=== PATIENT | male | born 1965 | race American Indian/Alaskan Native ===

== ENCOUNTER 2019-04-18 14:17 | Emergency (ER) | payer BC ==
--- NOTE | 2019-04-18 14:37 | Emergency Department Report ---
Blank Doc - Documentation Documentation: This is a 53-year-old male that presents with chest tightness and left jaw pain. This initial assessment/diagnostic orders/clinical plan/treatment(s) is/are subject to change based on patient's health status, clinical progression and re- assessment by fellow clinical providers in the ED. Further treatment and workup at subsequent clinical providers discretion. Patient/guardians urged not to elope from the ED as their condition may be serious if not clinically assessed a nd managed. Initial orders include: 1- Patient sent to MAIN ED for further evaluation and treatment 2- labs 3- EKG 4- CXR
[2019-04-18] MEDS ORDERED: CARAFATE PO ONE (15:24)
[2019-04-18] MEDS ORDERED: PEPCID PO ONE (15:24)
--- NOTE | 2019-04-18 15:25 | Emergency Department Report ---
ED General Adult HPI - General Chief complaint: Chest Pain Stated complaint: HEAD/NECK PAIN Time Seen by Provider: 04/18/19 14:35 Source: patient, RN notes reviewed Mode of arrival: Ambulatory Limitations: Other (the patient is a poor historian and does not know all of his medical problems) - History of Present Illness Initial comments: This is a 53-year-old gentleman. The patient is not known to this provider previously. Has a history of high cholesterol, presumably GERD or gastritis, overactive bladder, question anemia. Patient presents to the ER with 2 complaints. He can't recall the name of his primary care doctor. History of complaint is epigastric burning since 3:00 AM. It is constant. It does not radiate anywhere. There is no vomiting, diaphoresis, or shortness of breath. No recent aspirin consumption, and he denies DVT, pulmonary embolism risk factors. Last cardiac stress test was 3 years ago. He believes it was normal. Second complaint is left preauricular sensation of swelling. This is present since 3:00 AM. It is constant. There is no tinnitus, there is no vertigo, there is no change in auditory acuity. Denies headache otherwise, and denies neck pain, exertional source of breath, vomiting, lower abdominal pain, urinary symptoms, arthralgias, and skin rashes. -: Gradual, hour(s) Location: head, chest Radiation: non-radiation Quality: other Consistency: constant Improves with: none Worsens with: none - Related Data Home Medications Medication Instructions Recorded Confirmed Last Taken Iron Fum,Ps/Folic/Bcomp,C No.9 1 each PO DAILY 04/18/19 04/18/19 Unknown [Integra Plus Capsule] Mirabegron [Myrbetriq] 50 mg PO QDAY 04/18/19 04/18/19 Unknown Omeprazole 20 mg PO DAILY 04/18/19 04/18/19 Unknown Pravastatin [Pravachol] 20 mg PO DAILY 04/18/19 04/18/19 Unknown Sucralfate [Carafate] 1 gm PO QID 04/18/19 04/18/19 Unknown Tamsulosin [Flomax] 0.4 mg PO HS 04/18/19 04/18/19 Unknown Previous Rx's Medication Instructions Recorded Last Taken Type Aspirin [Aspirin BABY CHEW TAB] 81 mg PO QDAY #30 tab.chew 04/18/19 Unknown Rx Famotidine [Pepcid] 20 mg PO QDAY #30 tablet 04/18/19 Unknown Rx Allergies Allergy/AdvReac Type Severity Reaction Status Date / Time No Known Allergies Allergy Unverified 04/18/19 14:18 ED Review of Systems ROS: Stated complaint: HEAD/NECK PAIN Other details as noted in HPI Constitutional: denies: fever Eyes: denies: eye pain, eye discharge, vision change ENT: denies: ear pain, throat pain, dental pain, hearing loss, epistaxis, congestion Respiratory: denies: cough Cardiovascular: denies: chest pain Gastrointestinal: abdominal pain. denies: nausea Genitourinary: denies: dysuria Musculoskeletal: denies: arthralgia Skin: denies: lesions Neurological: denies: weakness, numbness, paresthesias, confusion Hematological/Lymphatic: denies: easy bleeding ED Past Medical Hx - Past Medical History Hx COPD: No Additional medical history: Anemia - Surgical History Past Surgical History?: No Hx Appendectomy: No - Social History Smoking Status: Current Every Day Smoker Substance Use Type: Alcohol - Medications Home Medications: Home Medications Medication Instructions Recorded Confirmed Last Taken Type Aspirin [Aspirin BABY CHEW TAB] 81 mg PO QDAY #30 tab.chew 04/18/19 Unknown Rx Famotidine [Pepcid] 20 mg PO QDAY #30 tablet 04/18/19 Unknown Rx Iron Fum,Ps/Folic/Bcomp,C No.9 1 each PO DAILY 04/18/19 04/18/19 Unknown History [Integra Plus Capsule] Mirabegron [Myrbetriq] 50 mg PO QDAY 04/18/19 04/18/19 Unknown History Omeprazole 20 mg PO DAILY 04/18/19 04/18/19 Unknown History Pravastatin [Pravachol] 20 mg PO DAILY 04/18/19 04/18/19 Unknown History Sucralfate [Carafate] 1 gm PO QID 04/18/19 04/18/19 Unknown History Tamsulosin [Flomax] 0.4 mg PO HS 04/18/19 04/18/19 Unknown History ED Physical Exam - General Limitations: No Limitations General appearance: alert, in no apparent distress - Head Head exam: Present: atraumatic, normocephalic - Eye Eye exam: Present: normal appearance, EOMI. Absent: nystagmus - ENT ENT exam: Present: normal exam, normal orophraynx, mucous membranes moist, TM's normal bilaterally, normal external ear exam - Neck Neck exam: Present: normal inspection, full ROM. Absent: tenderness, meningismus, lymphadenopathy - Respiratory Respiratory exam: Present: normal lung sounds bilaterally. Absent: respiratory distress - Cardiovascular Cardiovascular Exam: Present: normal rhythm, bradycardia, normal heart sounds. Absent: tachycardia, irregular rhythm, systolic murmur, diastolic murmur, rubs, gallop - GI/Abdominal GI/Abdominal exam: Present: soft. Absent: distended, tenderness, guarding, rebound, rigid, pulsatile mass - Rectal Rectal exam: Present: deferred - Extremities Exam Extremities exam: Present: normal inspection, full ROM, other (2+ pulses noted in the bilateral upper extremities. There is no long bony tenderness in the upper or lower extremities. The pelvis is stable. The muscular compartments are soft. There is no redness, pus or streaking noted in the upper extremities). Absent: pedal edema, calf tenderness - Back Exam Back exam: Present: normal inspection, full ROM. Absent: tenderness, CVA tenderness (R), CVA tenderness (L), paraspinal tenderness, vertebral tenderness - Neurological Exam Neurological exam: Present: alert, oriented X3, normal gait, other (Extraocular movements intact. Tongue midline. No facial droop. Facial sensation intact to light touch in the V1, V2, V3 distribution bilaterally. 5 and 5 strength in 4 extremities.. Sensation is intact to light touch in 4 extremities.). Absent: motor sensory deficit - Psychiatric Psychiatric exam: Present: anxious - Skin Skin exam: Present: warm, dry, intact, normal color. Absent: rash ED Course Vital Signs 04/18/19 04/18/19 04/18/19 14:34 15:28 15:30 Temperature 98 F Pulse Rate 72 63 61 Respiratory 16 16 16 Rate Blood Pressure 129/68 121/70 O2 Sat by Pulse 99 99 98 Oximetry 04/18/19 04/18/19 04/18/19 15:46 16:00 16:16 Temperature Pulse Rate 62 55 L 61 Respiratory 13 12 13 Rate Blood Pressure 119/67 120/73 O2 Sat by Pulse 100 97 99 Oximetry 04/18/19 04/18/19 04/18/19 16:30 16:46 17:00 Temperature Pulse Rate 58 L 58 L 56 L Respiratory 16 18 17 Rate Blood Pressure 127/74 127/76 130/78 O2 Sat by Pulse 99 100 100 Oximetry 04/18/19 04/18/19 04/18/19 17:30 17:46 18:00 Temperature Pulse Rate 58 L 58 L 58 L Respiratory 12 15 18 Rate Blood Pressure 136/80 126/80 140/81 O2 Sat by Pulse 99 98 100 Oximetry - Reevaluation(s) Reevaluation #1: 04/18/19 16:12 Differential diagnosis, including not limited to: GERD, gastritis, hiatal hernia, reflux, acute coronary syndrome, pulmonary embolism, left-sided sensation of soft tissue swelling, adenopathy, adenitis Assessment and plan: 53-year-old gentleman with complaint of left-sided preauricular swelling, nontender, external and internal head and neck exam appears to be unremarkable, and epigastric burning discomfort for 12 hours. He is afebrile with reassuring vital signs. He is not tachycardic he is not hypoxic, he endorses no DVT or pulmonary embolism risk factors, and he is low risk by well's criteria. Review of outpatient medications suggest that he may have GERD or gastritis. His abnormal EKG is reviewed and appreciated, however, based off of the history and physical, I think the patient is low risk by the heart score. We will treat his symptoms, I'll obtain appropriate laboratory studies and x-ray of the chest, and reassess. Reevaluation #2: 04/18/19 18:01 X-ray of the chest is negative for acute disease. Troponin negative 2. Patient in no acute distress. Reevaluation #3: 04/18/19 18:01 EKG is unchanged 2. Reevaluation #4: 04/18/19 19:32 Troponin negative 2. Patient resting comfortably. He will be discharged. ED Medical Decision Making - Lab Data Result diagrams: 04/18/19 15:30 04/18/19 15:30 Vital Signs 04/18/19 14:34 Temperature 98 F Pulse Rate 72 Respiratory 16 Rate Blood Pressure 129/68 O2 Sat by Pulse 99 Oximetry Lab Results 04/18/19 04/18/19 04/18/19 Range/Units 15:30 15:30 15:30 WBC 4.4 L (4.5-11.0) K/mm3 RBC 4.44 (3.65-5.03) M/mm3 Hgb 11.2 L (11.8-15.2) gm/dl Hct 35.8 (35.5-45.6) % MCV 81 L (84-94) fl MCH 25 L (28-32) pg MCHC 31 L (32-34) % RDW 14.5 (13.2-15.2) % Plt Count 163 (140-440) K/mm3 Lymph % (Auto) 24.8 (13.4-35.0) % [place] % (Auto) 9.9 H (0.0-7.3) % Eos % (Auto) 5.6 H (0.0-4.3) % Baso % (Auto) 0.9 (0.0-1.8) % Lymph # 1.1 L (1.2-5.4) K/mm3 [place] # 0.4 (0.0-0.8) K/mm3 Eos # 0.2 (0.0-0.4) K/mm3 Baso # 0.0 (0.0-0.1) K/mm3 Seg Neutrophils % 58.8 (40.0-70.0) % Seg Neutrophils # 2.6 (1.8-7.7) K/mm3 PT 12.9 (12.2-14.9) Sec. INR 1.00 (0.87-1.13) APTT 29.0 (24.2-36.6) Sec. D-Dimer < 135.00 (0-234) ng/mlDDU Magnesium 2.20 (1.7-2.3) mg/dL Total Bilirubin 0.60 (0.1-1.2) mg/dL Direct Bilirubin < 0.2 (0-0.2) mg/dL Indirect Bilirubin 0.4 mg/dL AST 36 (5-40) units/L ALT 39 (7-56) units/L Alkaline Phosphatase 44 (35-129) units/L Total Creatine Kinase 212 H (55-170) units/L Total Protein 6.4 (6.3-8.2) g/dL Albumin 4.3 (3.9-5) g/dL Albumin/Globulin Ratio 2.0 % Lipase 61 H (13-60) units/L - EKG Data -: EKG Interpreted by [facility] EKG shows normal: sinus rhythm Rate: normal - EKG Data When compared to previous EKG there are: previous EKG unavailable 04/18/19 16:15 EKG #1 demonstrates a sinus rhythm, left axis deviation, left anterior fascicular block, right bundle-branch block, MS interval within normal limits, CBC within normal limits, this is an abnormal EKG, his EKG is not consistent with ST elevation myocardial infarction, EKG #2 appears to be unchanged from EKG #1. There is no EKG available at this time for comparison. - Radiology Data Radiology results: pending, report reviewed, image reviewed Critical care attestation.: If time is entered above; I have spent that time in minutes in the direct care of this critically ill patient, excluding procedure time. ED Disposition Clinical Impression: History of chest pain, Sensation of fullness in left ear Disposition: - TO HOME OR SELFCARE Is pt being admited?: No Does the pt Need Aspirin: No Condition: Stable Additional Instructions: Apply warm compresses to the ear as often as as needed. Continue current outpatient medications. Avoid consumption of Motrin, ibuprofen, Naprosyn, Aleve, heavy, spicy foods. Follow up with a laser/electro optics technician for complaint of chest pain within the next 3-5 days. Follow-up with the primary care doctor for repeat evaluation of left anterior sensation of ear fullness. Patient should follow up with a primary care doctor for this within 2 weeks. Return to the emergency room right away with new, worsening or different symptoms not present on the initial emergency room evaluation. Prescriptions: Aspirin [Aspirin BABY CHEW TAB] 81 mg PO QDAY #30 tab.chew Famotidine [Pepcid] 20 mg PO QDAY #30 tablet Referrals: LIANA RUELAS MD [Primary Care Provider] - 3-5 Days [facility] [Provider Group] - 3-5 Days [facility] [Provider Group] - 3-5 Days
[2019-04-18 15:46] LABS: Basophils % (Auto) 0.9 % (0.0-1.8); Eosinophils # (Auto) 0.2 K/mm3 (0.0-0.4); Eosinophils % (Auto) 5.6 % (0.0-4.3); Hematocrit 35.8 % (35.5-45.6); Hemoglobin 11.2 gm/dl (11.8-15.2); Lymphocytes # (Auto) 1.1 K/mm3 (1.2-5.4); Lymphocytes % (Auto) 24.8 % (13.4-35.0); Mean Corpuscular HGB Conc 31 % (32-34); Mean Corpuscular Volume 81 fl (84-94); Monocytes # (Auto) 0.4 K/mm3 (0.0-0.8); Monocytes % (Auto) 9.9 % (0.0-7.3); Platelet Count 163 K/mm3 (140-440); Red Blood Count 4.44 M/mm3 (3.65-5.03); Red Cell Distribution Width 14.5 % (13.2-15.2)
[2019-04-18 16:02] LABS: Alanine Aminotransferase 39 units/L (7-56); Albumin 4.3 g/dL (3.9-5)
[2019-04-18 16:11] LABS: Bilirubin,Direct < 0.2 mg/dL (0-0.2)
[2019-04-18 16:21] LABS: BUN/Creatinine Ratio 8; Blood Urea Nitrogen 10 mg/dL (9-20); Calcium 9.3 mg/dL (8.4-10.2); Hemolysis Index 14
--- NOTE | 2019-04-18 17:23 | XRay Report ---
CHEST 2 VIEWS INDICATION / CLINICAL INFORMATION: Chest Pain. COMPARISON: None available. FINDINGS: SUPPORT DEVICES: None. HEART / MEDIASTINUM: The heart size is borderline with a left ventricular configuration. Pulmonary va sculature is normal. The aorta is normal in caliber. LUNGS / PLEURA: No significant pulmonary or pleural abnormality. No pneumothorax. ADDITIONAL FINDINGS: No significant additional findings. IMPRESSION: No acute findings. Signer Name: Shaun Crisostomo MD Signed: 04/18/2019 4:19 PM Workstation Name: [id number]
[2019-04-18 19:41] VITALS: BP 125/71
== END 2019-04-18 19:41 | disposition home or self-care (01) ==
LOC: ED 14:17
DX: R07.89 Other chest pain (principal); H93.8X2 Other specified disorders of left ear; F17.200 Nicotine dependence, unspecified, uncomplicated; E78.00 Pure hypercholesterolemia, unspecified; Z86.2 Personal history of diseases of the blood and blood-forming organs and certain disorders involving the immune mechanism; Z79.899 Other long term (current) drug therapy
CPT/HCPCS: 36415; 71046; 80048; 80076; 82550; 83690; 83735; 84484; 85025; 85379; 85610; 85730; 93005; 93010